=== PATIENT | female | born 1980 | race Caucasian/White ===

== ENCOUNTER 2016-05-11 20:08 | Emergency (ER) | payer OTHER ==
[2016-05-11 21:41] VITALS: BP 128/65
--- NOTE | 2016-05-11 22:10 | UC ---
Abdominal Pain Female HPI - HPI Summary HPI Summary: n/v/d for 2 days now has uri sx, fatigue, no fever - History of Current Complaint Chief Complaint: UCRespiratory Stated Complaint: FLU SYMPTOMS Time Seen by Provider: 05/11/16 21:42 Hx Obtained From: Patient Hx Last Menstrual Period: 05/07/16 ?: No Onset/Duration: Sudden Onset, Lasting Days - 3, Still Present Timing: Constant - was able to eat today Severity Initially: Moderate Severity Currently: Mild Pain Intensity: 3 Location: Diffuse Radiates: No Character: Cramping Alleviating Factor(s): Nothing Associated Signs and Symptoms: Positive: Cough, Nausea, Vomiting, Diarrhea Allergies/Adverse Reactions: Allergies Allergy/AdvReac Type Severity Reaction Status Date / Time No Known Allergies Allergy Verified 05/11/16 21:41 PMH/Surg Hx/FS Hx/Imm Hx Previously Healthy: Yes Endocrine History Of: Denies: Diabetes, Thyroid Disease Cardiovascular History Of: Denies: Cardiac Disorders, Hypertension Respiratory History Of: Denies: COPD, Asthma GI/ History Of: Denies: Ulcer - Surgical History Surgical History: None Surgery Procedure, Year, and Place: denies - Family History Known Family History: Positive: None Family History: no chronic issues in family lineage---all other family members acutely ill with similar sx - Social History Occupation: Employed Full-time - food service agent Lives: With Family Alcohol Use: Occasionally Substance Use Type: None Smoking Status (MU): Former Smoker Length of Time of Smoking/Using Tobacco: quit 11 years ago - Immunization History Most Recent Influenza Vaccination: fall 2015 Most Recent Pneumonia Vaccination: denies Review of Systems Constitutional: Fatigue Skin: Negative Eyes: Negative ENT: Nasal Discharge Respiratory: Cough Cardiovascular: Negative Gastrointestinal: Vomiting, Diarrhea Genitourinary: Negative Motor: Negative Neurovascular: Negative Musculoskeletal: Negative Neurological: Negative Psychological: Negative All Other Systems Reviewed And Are Negative: Yes Physical Exam Triage Information Reviewed: Yes Appearance: Well-Nourished, Ill-Appearing - mild, Pain Distress - mild Vital Signs: Initial Vital Signs Temp 98.2 F 05/11/16 21:34 Pulse 62 05/11/16 21:34 Resp 20 05/11/16 21:34 BP 128/65 05/11/16 21:34 Pulse Ox 98 05/11/16 21:34 Vital Signs Reviewed: Yes Eye Exam: Normal Eyes: Positive: Conjunctiva Clear ENT Exam: Normal ENT: Positive: Normal ENT inspection, Hearing grossly normal, Pharynx normal, Nasal congestion, TMs normal. Negative: Tonsillar swelling, Tonsillar exudate, Trismus, Muffled/hoarse voice Dental Exam: Normal Neck exam: Normal Neck: Positive: Supple, Nontender, No Lymphadenopathy Respiratory Exam: Normal Respiratory: Positive: Chest non-tender, Lungs clear, Normal breath sounds, No respiratory distress, No accessory muscle use Cardiovascular Exam: Normal Cardiovascular: Positive: RRR, No Murmur, Pulses Normal, Brisk Capillary Refill Abdominal Exam: Normal Abdomen Description: Positive: Nontender, No Organomegaly, Soft. Negative: CVA Tenderness (R), CVA Tenderness (L), Hepatomegaly, McBurney's Point Tenderness, Peritoneal Signs Bowel Sounds: Positive: Present Musculoskeletal Exam: Normal Musculoskeletal: Positive: Strength Intact, ROM Intact, No Edema Neurological Exam: Normal Neurological: Positive: Alert, Muscle Tone Normal Psychological Exam: Normal Psychological: Positive: Normal Response To Family, Age Appropriate Behavior Skin Exam: Normal Abd Pain Female Course/Dx - Course Course Of Treatment: rest increase fluids, clear liquid diet advance slowly, follow with pcp - Differential Dx/Diagnosis Differential Diagnosis: Appendicitis, Diverticulitis, Gall Bladder Disease, Other - viral illness Provider Diagnoses: Viral GI illness Discharge - Discharge Plan Condition: Stable Disposition: HOME Patient Education Materials: Gastroenteritis (ED), Acute Nausea and Vomiting ( ED), Viral Syndrome (ED), Nutrition Tips for Relief of Diarrhea (ED) Forms: *School Release Referrals: [facility] [Provider Group] - If Needed No Primary Care Phys,NOPCP [Primary Care Provider] -
== END 2016-05-11 22:15 | disposition home or self-care (01) ==
LOC: UCEAST 20:08
DX: A08.4 Viral intestinal infection, unspecified (principal); Z87.891 Personal history of nicotine dependence
CPT/HCPCS: 99211; G0463